=== PATIENT | male | born 1980 ===

== ENCOUNTER 2017-07-28 18:32 | Inpatient (IN) | payer MEDICAID ==
[2016-08-05 09:47] VITALS: Ht 195.6 cm; Wt 107.0 kg
[~2017-07-28] VITALS: Ht 195.6 cm; Wt 107.0 kg
[~2017-07-28 18:32] MED LIST changes: -FOLI-68 PO; -LANI SUBQ; -MIRT-20 PO; -MULT-1379 PO; -NICOTROL INHALER PO; -THIA100T2 PO
[2017-07-28] MEDS ORDERED: NICOTINE POLACRILEX 2 MG GUM PO PRN (18:55)
[2017-07-28] MEDS ORDERED: ACETAMINOPHEN 325 MG TAB PO PRN (19:15)
[2017-07-28] MEDS ORDERED: MAG HYD/AL HYD/SIMETH 30ML UDC PO PRN (19:15)
[2017-07-28 19:32] VITALS: BP 145/104
[2017-07-28] MEDS: INSULIN GLARGINE 100 U/ML 3 ML PEN SUBQ SCH ×2 (21:30→22:39)
[2017-07-28] MEDS: DIAZEPAM 10 MG TAB PO PRN (21:31)
[2017-07-29 03:20] VITALS: BP 127/93
[2017-07-29] MEDS: DIAZEPAM 10 MG TAB PO PRN ×4 (03:29→21:10)
[2017-07-29] MEDS ORDERED: metFORMIN HCL 500 MG TAB PO SCH (08:00)
[2017-07-29] MEDS: MULTIVITAMINS PO SCH (08:38)
[2017-07-29] MEDS: FOLIC ACID 1 MG TAB PO SCH (08:38)
[2017-07-29] MEDS: metFORMIN HCL 500 MG TAB PO SCH ×2 (08:38→21:09)
[2017-07-29] MEDS: CHOLECALCIFEROL 1000 UNIT TAB PO SCH (08:39)
[2017-07-29] MEDS: THIAMINE HCL 100 MG TAB PO SCH (08:39)
[2017-07-29 08:45] VITALS: BP 136/100
[2017-07-29 13:10] VITALS: BP 136/105
[2017-07-29 15:02] VITALS: BP 156/100
[2017-07-29 17:00] VITALS: BP 144/102
[2017-07-29 19:08] VITALS: BP 140/92
[2017-07-29] MEDS: INSULIN GLARGINE 100 U/ML 3 ML PEN SUBQ SCH ×2 (21:00→21:11)
[2017-07-29] MEDS ORDERED: CYPROHEPTADINE 4 MG PO SCH (21:00)
[2017-07-29] MEDS: MIRTAZAPINE 30 MG TAB 30 MG TAB PO SCH (21:10)
[2017-07-29] MEDS: ATORVASTATIN 10 MG TAB PO SCH (21:10)
[2017-07-30 04:00] VITALS: BP 132/94
[2017-07-30 08:00] VITALS: BP 135/109
[2017-07-30] MEDS: metFORMIN HCL 500 MG TAB PO SCH ×2 (08:19→17:00)
[2017-07-30] MEDS: MULTIVITAMINS PO SCH (08:20)
[2017-07-30] MEDS: FOLIC ACID 1 MG TAB PO SCH (08:20)
[2017-07-30] MEDS: CHOLECALCIFEROL 1000 UNIT TAB PO SCH (08:20)
[2017-07-30] MEDS: THIAMINE HCL 100 MG TAB PO SCH (08:20)
[2017-07-30 08:45] VITALS: BP 131/103
--- NOTE | 2017-07-30 10:03 | BHS Progress Note ---
[facility] - Subjective Progress Notes Subjective Patient denies any suicidal ideation today, and is pleasant and cooperative with this provider. Unfortunately, patient has decided now not to go to rehab at this point. Patient reports mood improving in absence of alcohol, will continue to treat patient's alcohol withdrawal to completion. No other concerns today. Suicidal Ideation: None Homicidal Ideation: None [facility] - Objective Physical Exam Vital Signs Vital Signs Date Time Temp Pulse Resp B/P (MAP) Pulse Ox O2 Delivery O2 Flow Rate FiO2 07/30/17 08:45 97.7 90 16 131/103 (112) 90 Room Air 07/29/17 15:02 2.0 Hematology Test 07/29/17 20:29 Whole Blood Glucose 132 mg/DL (75-110) Chemistry Test 07/29/17 20:29 Whole Blood Glucose 132 mg/DL (75-110) Muscle Strength and Tone: WNL Gait and Station: Steady [facility] Medications Reviewed: Side Effects, Benefits of Medication, Risks Allergies Reviewed: Yes Mental Status Exam General Appearance: Casual, Well Groomed, Good Eye Contact, Cooperative, Polite , Good Interaction, No Unkept, No Tearful, No Psychomotor Agitation, No Psychomotor Retardation, No Bizarre Mannerisms, No Tics Speech: Clear, Spontaneous, Normal Rate, Normal Rhythm, Normal Volume, Normal Tone Mood: Dysthmic/Depressed (frustrated, but improving) Affect: Full and Appropriate, Calm, Withdrawn, No Tearful, No Anxious, No Agitated Thought Process: Organized, Logical, Goal Directed, No Loose Associations, No Flight of Ideas Thought Content: No Suicidal Ideation, No Homicidal Ideation, No Delusions, No Auditory Halllucinations, No Visual Hallucinations, No Thought Broadcasting, No Ideas of Reference, No Obsessions, No Compulsions Sensorium: Clear Cognition: Alert & Oriented-Person, Alert & Oriented-Place, Alert & Oriented- Time, Jgczw-Ikafzndr-Qupmapuyz Memory: Immediate, Recent, Remote Intelligence: Average Insight Judgment: Fair (improving in absence of alcohol. ) [facility] Assessment and Plan [id number] Encounter Date: Jul 30, 2017 [id number] Encounter Time: 09:30 [facility] Plan: Necessary Precautions, Individual/Group Therapy, Admin/Titrate Meds, Educate Patient Tobacco Medications: Not Appropriate Condition Problems: (1) Alcohol-induced mood disorder Status: Acute Assessment & Plan: follows intoxication (2) Alcohol use disorder Status: Chronic Assessment & Plan: severe (3) Alcohol withdrawal Status: Acute Condition 1. continue treatment of withdrawal 2. encourage rehab, entrance. Problem Qualifiers (1) Alcohol withdrawal: Complication of substance-induced condition: uncomplicated Qualified Codes: F10.230 - Alcohol dependence with withdrawal, uncomplicated JOSE D GOLDEN MD Jul 30, 2017 10:03
[2017-07-30 12:45] VITALS: BP 142/104
[2017-07-30] MEDS ORDERED: NICOTINE CARTRIDGE 1 EA PO PRN (15:00)
[2017-07-30] MEDS: NICOTINE INH SYSTEM 10 MG/INH INH PRN ×2 (15:37→21:05)
--- NOTE | 2017-07-30 16:55 | HISTORY AND PHYSICAL ---
DATE OF ADMISSION: July 28, 2017 PRESENTING PROBLEM/CHIEF COMPLAINT This is a 36-year-old male who is somewhat well known to the Behavioral Health Unit here at [facility]. Patient presented to the emergency room on July 28, 2017 in a state of alcohol intoxication, likely compounded underlying depression with substance-induced mood disorder, and patient voicing suicidal thoughts. Patient was seen for this dictation on the morning of July 29, 2017 at approximately 1100 hours. HISTORY OF PRESENT ILLNESS This is again a 36-year-old male, last on the unit here from August 04 to August 06, 2016. Patient at that time suffering from a diagnosis of alcohol use disorder severe, alcohol withdrawal treated to completion. Patient appeared to have substance-induced mood disorder mainly, however, underlying persisting depressive disorder versus major depression needs to be further evaluated. Patient very cooperative with initial interview, stating that his mood is improving in the absence of alcohol. Patient reports up to a one and a half month period of sobriety where he was totally abstinent from alcohol since leaving the unit in July of 2016. Patient reports toward the end of that period that the patient's mood was good in the absence of alcohol. Patient has long fought alcoholism. He also reports specific stressors in that he had been looking for a job and he is no longer in [employer]. Patient reports overall getting along okay with his , however, he does report that drinking certainly causes problems in their relationship. Patient unable to give any specific depressive symptoms, other than the aforementioned suicidal thoughts which seem to appear in the presence of alcohol intoxication. MENTAL HEALTH HISTORY Patient reports inpatient history of being in a [facility]. Patient has been here twice before. Patient has been in a [facility] in [place] in 2011 as well. Patient recently started seeing an outpatient therapist at [facility], and continues on medications prescribed through the [facility]. FAMILY PSYCHIATRIC HISTORY Patient's mother and father were known to suffer for alcoholism. Rest of psychiatric history unknown at this time. PAST MEDICAL HISTORY Significant for diabetes and some chronic low back pain. SOCIAL HISTORY Patient was born in [place], [place]. Patient was raised there. Parents were together at the time of his . They remained together until he was about 14-15 years old. Patient has two brothers, two sisters. He states he gets along with his family well overall. He is a high school graduate. Patient was unable to finish [employer] and is not enrolled, as [facility] is closing as well. 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 Patient is not working currently. Patient is last known to get 60% disability for PTSD through the [facility] system. Patient lives with his and two children, ages 6 and 3, here in [place], and reports that alcohol influences his relationship in a negative manner. LEGAL HISTORY Patient is believed to have multiple DUIs. SUBSTANCE USE HISTORY Main substance of abuse remains alcohol. Minimal cigarette smoking in the past. Patient had tried cocaine in the past per previous report which was pleasurable, and has used marijuana from time to time. PHYSICAL EXAMINATION GENERAL: Please see emergency room note. Notable for a 36-year-old male who appears stated age in no acute medical distress. VITAL SIGNS: At the time of admission temperature 98.7, pulse 111, respiratory rate 18, blood pressure 139/106 and pulse oximetry initially low at 86 on room air. LABORATORY DATA CBC notable for RBCs slightly elevated at 6.14, notably MCV and MCH within normal range with a normal platelet count of 258,000. Chemistry hepatic panel unremarkable including total bilirubin, AST and ALT. Random glucose slightly elevated at 137. TSH low at 0.31. Urinalysis did show small urine blood, otherwise unremarkable. Toxicology screen was negative for substances of abuse with the exception of a blood alcohol level of 379 at the time of admission. MENTAL STATUS EXAMINATION GENERAL APPEARANCE, BEHAVIOR AND ATTITUDE: At the time of initial interview, this is a very cooperative, polite 36-year-old male admitting that alcohol is his biggest problem in his life. Patient contemplating whether to go back to rehab through the [facility] services or not. Patient very polite, making good eye contact, interacting well. No bizarre mannerisms or tics. No periods of tearfulness. SPEECH: Within normal limits, regular rate, rhythm volume and tone. MOOD: Described as improving in the absence of alcohol. AFFECT: Minimally constricted and mood congruent. THOUGHT PROCESSES: Appear goal directed, logical. No loose associations or flight of ideas. THOUGHT CONTENT: Free of auditory or visual hallucinations, ideas of reference , thought broadcastings, delusions, obsessions, compulsions. Patient denying suicidal or homicidal ideation today. SENSORIUM: Clear. COGNITION: Alert and oriented to person, place, time and situation. MEMORY: Immediate, recent and remote estimated intact. INTELLIGENCE: Average based on interview. INSIGHT AND JUDGMENT: Considered grossly intact in the absence of alcohol use. Patient presenting voluntarily for treatment. ASSESSMENT This is a 36-year-old male who suffers from chronic, severe alcoholism. Patient does have some periods of sobriety in between binging episodes and dysphoric mood seems to take place in the presence of alcohol. At this time we will work with patient to concur any symptoms of physiologic alcohol withdrawal with diazepam per [facility] protocol. We will meet with patient's as well and would encourage residential rehab at this time. DIAGNOSES PER DSM-V Alcohol intoxication. Alcohol withdrawal. Alcohol use disorder severe. Alcohol-induced mood disorder. Underlying persistent depression versus major depression. PLAN 1. Admit to the unit. 2. Necessary precautions to be implemented. 3. Patient will participate in individual and group therapy. 4. Medications to be adjusted, titrated accordingly. 5. Collateral information to be obtained. 6. Estimated length of stay unknown at this time. MTDD
[2017-07-30 20:03] VITALS: BP 145/95
[2017-07-30] MEDS: MIRTAZAPINE 30 MG TAB 30 MG TAB PO SCH (21:04)
[2017-07-30] MEDS: INSULIN GLARGINE 100 U/ML 3 ML PEN SUBQ SCH (21:04)
[2017-07-30] MEDS: ATORVASTATIN 10 MG TAB PO SCH (21:04)
[2017-07-31 03:15] VITALS: BP 114/76
[2017-07-31] MEDS: FOLIC ACID 1 MG TAB PO SCH (08:07)
[2017-07-31] MEDS: metFORMIN HCL 500 MG TAB PO SCH (08:07)
[2017-07-31] MEDS: THIAMINE HCL 100 MG TAB PO SCH (08:07)
[2017-07-31] MEDS: MULTIVITAMINS PO SCH (08:07)
[2017-07-31] MEDS: CHOLECALCIFEROL 1000 UNIT TAB PO SCH (08:08)
[2017-07-31 08:25] VITALS: BP_SYST 122; BP_SYST 182; BP_DIAS 86
[2017-07-31] MEDS: NICOTINE INH SYSTEM 10 MG/INH INH PRN (09:57)
[2017-07-31] MEDS ORDERED: FOLI-68 PO (10:43)
[2017-07-31] MEDS ORDERED: LANI SUBQ (10:44)
[2017-07-31] MEDS ORDERED: ATOR10TA24 PO (10:45)
[2017-07-31] MEDS ORDERED: MIRT-20 PO (10:48)
[2017-07-31] MEDS ORDERED: MULT-1379 PO (12:35)
[2017-07-31] MEDS ORDERED: THIA100T2 PO (12:36)
[2017-07-31] MEDS ORDERED: NIC10R INH (12:37)
[2017-07-31] MEDS ORDERED: NICOTROL INHALER PO (12:38)
[2017-07-31 12:52] VITALS: BP 140/92
--- NOTE | 2017-08-01 16:58 | DISCHARGE SUMMARY ---
FINAL DIAGNOSES PER DSM-V Alcohol intoxication, resolved. Alcohol withdrawal, treated to completion. Alcohol use disorder, severe. Alcohol-induced mood disorder. Underlying persisting depression versus potential major depression. REASON FOR ADMISSION Please see H and P for full details. This is a very polite, cooperative 36-year -old male who suffers from penitentiary alcohol use disorder. Patient admitted with suicidal thoughts and in a state of alcohol intoxication. Patient admitted on a voluntary basis. Alcohol withdrawal completed to completion via CIWA protocol and diazepam. Patient continued to improve, mood continued to improve in the absence of alcohol, and patient having no further suicidal ideation. Patient's was contacted prior to discharge, had no reservations about his discharge. Patient discharged to home. PHYSICAL EXAMINATION GENERAL: Please see emergency room note. Notable for a 36-year-old male in no acute medical distress. VITAL SIGNS: At the time of admission showed a temperature of 98.7, pulse 111, respiratory rate 18, blood pressure 139/106, pulse oximetry 86 on room air. At the time of discharge from [facility] vital signs showed temperature 98.9 , pulse 93, respiratory rate 16, blood pressure 140/92 and pulse oximetry 95 on room air. LABORATORY DATA This patient who suffers from diabetes showed largely controlled blood sugars throughout his stay. Please see electronic record. CBC at the time of admission notable for RBCs slightly elevated at 6.14, platelet count notably within normal limits, and MCH and MCH were within normal limits. Chemistry panel noted for a random glucose of 137 at the time of admission. TSH low at 0.31. Toxicology screen negative with a serum alcohol level critically high at 379 upon admission. Patient had small urine blood present and some urine protein, otherwise unremarkable urinalysis. MENTAL STATUS EXAMINATION AT THE TIME OF DISCHARGE GENERAL APPEARANCE, BEHAVIOR AND ATTITUDE: This is a somewhat quiet 36-year- old male making [id number] eye contact. This seems to be baseline with cultural roots. Patient interacting well with this provider, other treatment team staff. Patient interacting well with his , present via telephone at the time of final meeting prior to discharge. No bizarre mannerisms or tics. No periods of tearfulness. SPEECH: Again, quiet at times. MOOD: Described as okay. AFFECT: Slightly constricted to full briefly. THOUGHT PROCESSES: Logical, goal directed. No loose associations or flight of ideas. THOUGHT CONTENT: Free of auditory or visual hallucinations, ideas of reference , thought broadcastings, delusions, obsessions, compulsions. Patient denying any suicidal or homicidal ideation. SENSORIUM: Clear. COGNITION: Alert and oriented to person, place, time and situation. MEMORY: Immediate, recent and remote estimated intact. INTELLIGENCE: Average based on interview. INSIGHT AND JUDGMENT: Considered grossly intact in the absence of alcohol use. RESULTS OF TESTING IMAGING: None. LABORATORY DATA: See above. CONSULTATIONS: None. TREATMENT Patient received medications, participated in individual and group therapy. HOSPITAL COURSE Patient was very calm and cooperative throughout the stay. No parasuicidal behaviors were known. Patient took a very active role in his treatment. Initially patient was considering going to residential rehab, which was strongly encouraged in this patient, however, patient refusing in the end, wanting to discharge to home. CONDITION OF PATIENT ON DISCHARGE Stable. Considered minimal risk to himself or others in the absence of alcohol , and appropriate for ongoing outpatient management. DISPOSITION Patient discharged to home in the care of his . Patient would follow up with [place] for [facility] and [place] and any other outpatient services. Patient currently will see therapist as well through the [facility] outreach program. Patient would abstain from alcohol, was encouraged to enter residential rehab, and was given the crisis line should symptoms return. Discharge medications included folic acid 1 mg over the counter daily, Glucophage 1000 mg at breakfast and supper, Lantus as needed at home, Lipitor 10 mg at bedtime, cyproheptadine 4 mg at bedtime, Remeron 60 mg at bedtime, vitamin B1 100 mg daily, multivitamin with minerals daily, vitamin D3 1000 international units daily. Patient could also continue bupropion which patient had at home at 100 mg at breakfast and 100 mg at lunch. Patient was given the crisis line should symptoms return. Risks, benefits and alternatives of the above discharge plan were discussed. Informed consent was given to proceed with above discharge plan by this competent patient and patient 's . FRANCIE
== END 2017-07-31 15:56 | disposition home or self-care (01) | DRG 897 ==
LOC: BHS 18:32
PROVIDERS: ADMIT Registered Nurse Psychiatric/Mental Health, Adult; ATTEND Registered Nurse Psychiatric/Mental Health, Adult
DX: F10.230 Alcohol dependence with withdrawal, uncomplicated (principal); R45.851 Suicidal ideations; F10.24 Alcohol dependence with alcohol-induced mood disorder; F34.1 Dysthymic disorder; E11.9 Type 2 diabetes mellitus without complications; F43.12 Post-traumatic stress disorder, chronic; G89.29 Other chronic pain; Y90.8 Blood alcohol level of 240 mg/100 ml or more; Z56.0 Unemployment, unspecified; Z81.1 Family history of alcohol abuse and dependence; Z87.891 Personal history of nicotine dependence; Z91.5 Personal history of self-harm; Z79.4 Long term (current) use of insulin
CPT/HCPCS: 36416; 82948; 90853; J1815

== ENCOUNTER → 2017-07-28 | Emergency (ER) | payer MEDICAID ==
[2016-08-05 09:47] VITALS: Ht 182.9 cm; Wt 113.4 kg
[~2017-07-28] VITALS: Ht 182.9 cm; Wt 113.4 kg
[~2017-07-28] MED LIST: ATOR10TA24 PO; BUPR-149 PO; CHOL200022 PO; CYCL10TA29 PO; CYPR4TAB32 PO; FOLI-68 PO; GABA-549 PO; HYDR-317 PO; HYDR-4309 PO; IBUP400T13 PO; LANI SUBQ; METF-420 PO; MIR45PT PO; MIRT-20 PO; MIRT-25 PO; MULT-1379 PO; NIC10R INH; NICOTROL INHALER PO; THIA100T2 PO
--- NOTE | 2017-07-28 16:04 | ER Report ---
History and Physical Time Seen By MD: 16:04 HPI/TOMEKA CHIEF COMPLAINT: Suicidal ideation HISTORY OF PRESENT ILLNESS: 36-year-old male patient presents to emergency room with complaint of suicidal ideation. Patient states that he is currently been out of his antidepressant medications for 4 days. He states that he has had problems with depression past. He states that he sees a counselor in the [facility]. He states that he does not have any plans at this time. He states that he does have a suicide attempt in the past. He states that that time he took a gun and blow to his head and pull the trigger. He did not respond when asked what happened at that time. He states he does have some low abdominal discomfort. He denies any fevers, chills, nausea, vomiting or diarrhea. Patient states that he did have a lot to drink. Patient states he does drink daily, however he typically drinks beer. He states that today he is drink more of the hard liquor. REVIEW OF SYSTEMS: Respiratory: No cough, no dyspnea. Cardiovascular: No chest pain, no palpitations. Gastrointestinal: As noted above Musculoskeletal: No back pain. Allergies: Coded Allergies: naproxen (Verified Allergy, Mild, 08/04/16) lisinopril (Verified Allergy, Unknown, 08/04/16) UNABLE TO OBTAIN (Unverified , 03/16/17) "I can't remeber" Home Meds Reported Medications Metformin Hcl (METFORMIN HCL) 1,000 Mg Tablet, 1 TAB PO QDAY, TAB 03/16/17 Cholecalciferol (Vitamin D3) (Vitamin D-3) 2,000 Unit Tablet, 2000 INTLU PO DAILY 05/14/16 Mirtazapine (REMERON) 45 Mg Tab, 45 MG PO QHS, TAB 05/14/16 Gabapentin (GABAPENTIN) 300 Mg Capsule, 600 MG PO BID, CAPSULE 05/09/16 Bupropion Hcl (BUPROPION HCL) 100 Mg Tablet, 100 MG PO BIDBL, TAB TAKE 100 MG AT 0900 AND NOON. 05/09/16 Cyproheptadine Hcl (CYPROHEPTADINE HCL) 4 Mg Tablet, 4 MG PO HS Y for SLEEP 05/09/16 Ibuprofen (IBUPROFEN) 400 Mg Tablet, 2 TAB PO TID, TAB 03/13/16 Metformin Hcl (METFORMIN HCL) 1,000 Mg Tablet, 1 TAB PO BID, TAB TAKE 1000 MG AT BREAKFAST AND SUPPER 03/13/16 Discontinued Reported Medications Nicotine (NICOTROL) 10 Mg/Inh Ctr, 1 EA INH PRN NICOTINE REPLACEMENT NEEDED 05/14/16 Atorvastatin Calcium (LIPITOR) 10 Mg Tablet, 1 TAB PO QHS, TAB 05/14/16 Past Medical/Surgical History Patient has a past medical history of hypertension, diabetes, substance abuse, alcohol abuse, PTSD, depression, suicidal attempt. Patient has a surgical history of appendectomy, bowel surgery. Reviewed Nurses Notes: Yes Hx Smoking: Yes Smoking Status: Current: Every Day Smoker Exposure to Second Hand Smoke?: Yes Hx Substance Use Disorder: Yes Hx Alcohol Use: Yes Constitutional Vital Sign - Last 24 Hours 07/28/17 07/28/17 07/28/17 07/28/17 16:04 16:04 16:13 16:28 Temp 98.7 Pulse 111 113 100 Resp 18 B/P (MAP) 139/106 139/106 (117) Pulse Ox 86 91 98 07/28/17 07/28/17 07/28/17 07/28/17 16:43 16:58 17:13 17:22 Pulse 105 ? B/P (MAP) 141/79 (99) Pulse Ox 94 07/28/17 07/28/17 07/28/17 07/28/17 17:27 17:42 17:57 18:12 Pulse 113 ? Resp 18 Pulse Ox 90 07/28/17 07/28/17 07/28/17 18:22 18:27 18:45 Pulse 111 B/P (MAP) 118/93 (101) Pulse Ox 96 O2 Flow Rate 2.0 Physical Exam General Appearance: The patient is alert, has no immediate need for airway protection and no current signs of toxicity. ENT: Tympanic membranes are pearly-olivas, auditory canals are patent, mucous membranes are moist. Respiratory: Chest is non tender, lungs are clear to auscultation. Cardiac: regular rate and rhythm Gastrointestinal: Abdomen is soft and non tender, no masses, bowel sounds normal. Musculoskeletal: Neck: Neck is supple and non tender. Extremities have full range of motion and are non tender. Skin: No rashes or lesions. Psych: Patient does have slurred speech, he is able to maintain eye contact, speech is slow. DIFFERENTIAL DIAGNOSIS: After history and physical exam differential diagnosis was considered for depression, suicidal ideation. Medical Decision Making Data Points Result Diagram: 07/28/17 1626 07/28/17 1626 Laboratory Hematology Test 07/28/17 16:26 07/28/17 16:58 Red Blood Count 6.14 M/uL (4.00-5.60) Mean Corpuscular Volume 84.7 fL (80.0-96.0) Mean Corpuscular Hemoglobin 28.9 pg (26.0-33.0) Mean Corpuscular Hemoglobin Concent 34.1 g/dL (32.0-36.0) Red Cell Distribution Width 14.7 % (11.5-14.5) Mean Platelet Volume 7.9 fL (7.2-11.1) Neutrophils (%) (Auto) 47.0 % (39.4-72.5) Lymphocytes (%) (Auto) 45.2 % (17.6-49.6) Monocytes (%) (Auto) 6.4 % (4.1-12.4) Eosinophils (%) (Auto) 0.2 % (0.4-6.7) Basophils (%) (Auto) 1.2 % (0.3-1.4) Nucleated RBC Relative Count (auto) 0.1 /100WBC Neutrophils # (Auto) 3.9 K/uL (2.0-7.4) Lymphocytes # (Auto) 3.8 K/uL (1.3-3.6) Monocytes # (Auto) 0.5 K/uL (0.3-1.0) Eosinophils # (Auto) 0.0 K/uL (0.0-0.5) Basophils # (Auto) 0.1 K/uL (0.0-0.1) Nucleated RBC Absolute Count (auto) 0.01 K/uL Sodium Level 148 mmol/L (137-145) Potassium Level 3.6 mmol/L (3.5-5.0) Chloride Level 105 mmol/L (98-107) Carbon Dioxide Level 24 mmol/L (22-30) Blood Urea Nitrogen 7 mg/dl (9-21) Creatinine 0.80 mg/dl (0.66-1.25) Glomerular Filtration Rate Calc > 60.0 Random Glucose 137 mg/dl (75-110) Calcium Level 8.8 mg/dl (8.4-10.2) Magnesium Level 1.9 mg/dl (1.7-2.2) Total Bilirubin 0.4 mg/dl (0.2-1.3) Aspartate Amino Transf (AST/SGOT) 27 U/L (0-35) Alanine Aminotransferase (ALT/SGPT) 55 U/L (0-56) Alkaline Phosphatase 77 U/L (0-126) Total Protein 8.3 gm/dl (6.3-8.2) Albumin 4.6 g/dl (3.5-5.0) Salicylates Level < 10 mg/L Salicylate Last Dose Date unk Acetaminophen Level < 10 ug/ml Serum Alcohol 379 mg/dl Urine Color Yellow Urine Clarity Clear Urine pH 6.0 pH (4.8-9.5) Urine Specific Ona 1.009 Urine Protein 30 mg/dL (NEGATIVE) Urine Glucose (UA) Negative mg/dL (NEGATIVE) Urine Ketones Negative mg/dL (NEGATIVE) Urine Blood Small (NEGATIVE) Urine Nitrite Negative (NEGATIVE) Urine Bilirubin Negative (NEGATIVE) Urine Urobilinogen Negative mg/dL (0.2-1.9) Urine Leukocyte Esterase Negative (NEGATIVE) Urine RBC <1 /HPF (0-2/HPF) Urine WBC 2 /HPF (0-5/HPF) Urine Squamous Epithelial Cells Few /LPF (</=FEW) Urine Bacteria Negative /HPF (NONE-FEW) Urine Mucus None /HPF (NONE-FEW) Urine Opiates Screen Negative Urine Barbiturates Screen Negative Ur Tricyclic Antidepressants Screen Negative Urine Phencyclidine Screen Negative Urine Amphetamines Screen Negative Urine Benzodiazepines Screen Negative Urine Cocaine Screen Negative Urine Cannabinoids Screen Negative Chemistry Test 07/28/17 16:26 07/28/17 16:58 White Blood Count 8.3 k/uL (4.5-11.0) Red Blood Count 6.14 M/uL (4.00-5.60) Hemoglobin 17.8 g/dL (14.0-18.0) Hematocrit 52.1 % (42.0-52.0) Mean Corpuscular Volume 84.7 fL (80.0-96.0) Mean Corpuscular Hemoglobin 28.9 pg (26.0-33.0) Mean Corpuscular Hemoglobin Concent 34.1 g/dL (32.0-36.0) Red Cell Distribution Width 14.7 % (11.5-14.5) Platelet Count 258 K/uL (150-450) Mean Platelet Volume 7.9 fL (7.2-11.1) Neutrophils (%) (Auto) 47.0 % (39.4-72.5) Lymphocytes (%) (Auto) 45.2 % (17.6-49.6) Monocytes (%) (Auto) 6.4 % (4.1-12.4) Eosinophils (%) (Auto) 0.2 % (0.4-6.7) Basophils (%) (Auto) 1.2 % (0.3-1.4) Nucleated RBC Relative Count (auto) 0.1 /100WBC Neutrophils # (Auto) 3.9 K/uL (2.0-7.4) Lymphocytes # (Auto) 3.8 K/uL (1.3-3.6) Monocytes # (Auto) 0.5 K/uL (0.3-1.0) Eosinophils # (Auto) 0.0 K/uL (0.0-0.5) Basophils # (Auto) 0.1 K/uL (0.0-0.1) Nucleated RBC Absolute Count (auto) 0.01 K/uL Glomerular Filtration Rate Calc > 60.0 Calcium Level 8.8 mg/dl (8.4-10.2) Magnesium Level 1.9 mg/dl (1.7-2.2) Total Bilirubin 0.4 mg/dl (0.2-1.3) Aspartate Amino Transf (AST/SGOT) 27 U/L (0-35) Alanine Aminotransferase (ALT/SGPT) 55 U/L (0-56) Alkaline Phosphatase 77 U/L (0-126) Total Protein 8.3 gm/dl (6.3-8.2) Albumin 4.6 g/dl (3.5-5.0) Salicylates Level < 10 mg/L Salicylate Last Dose Date unk Acetaminophen Level < 10 ug/ml Serum Alcohol 379 mg/dl Urine Color Yellow Urine Clarity Clear Urine pH 6.0 pH (4.8-9.5) Urine Specific Ona 1.009 Urine Protein 30 mg/dL (NEGATIVE) Urine Glucose (UA) Negative mg/dL (NEGATIVE) Urine Ketones Negative mg/dL (NEGATIVE) Urine Blood Small (NEGATIVE) Urine Nitrite Negative (NEGATIVE) Urine Bilirubin Negative (NEGATIVE) Urine Urobilinogen Negative mg/dL (0.2-1.9) Urine Leukocyte Esterase Negative (NEGATIVE) Urine RBC <1 /HPF (0-2/HPF) Urine WBC 2 /HPF (0-5/HPF) Urine Squamous Epithelial Cells Few /LPF (</=FEW) Urine Bacteria Negative /HPF (NONE-FEW) Urine Mucus None /HPF (NONE-FEW) Urine Opiates Screen Negative Urine Barbiturates Screen Negative Ur Tricyclic Antidepressants Screen Negative Urine Phencyclidine Screen Negative Urine Amphetamines Screen Negative Urine Benzodiazepines Screen Negative Urine Cocaine Screen Negative Urine Cannabinoids Screen Negative Toxicology Test 07/28/17 16:26 07/28/17 16:58 Salicylates Level < 10 mg/L Salicylate Last Dose Date unk Acetaminophen Level < 10 ug/ml Serum Alcohol 379 mg/dl Urine Opiates Screen Negative Urine Barbiturates Screen Negative Ur Tricyclic Antidepressants Screen Negative Urine Phencyclidine Screen Negative Urine Amphetamines Screen Negative Urine Benzodiazepines Screen Negative Urine Cocaine Screen Negative Urine Cannabinoids Screen Negative Urinalysis Test 07/28/17 16:58 Urine Color Yellow Urine Clarity Clear Urine pH 6.0 pH (4.8-9.5) Urine Specific Ona 1.009 Urine Protein 30 mg/dL (NEGATIVE) Urine Glucose (UA) Negative mg/dL (NEGATIVE) Urine Ketones Negative mg/dL (NEGATIVE) Urine Blood Small (NEGATIVE) Urine Nitrite Negative (NEGATIVE) Urine Bilirubin Negative (NEGATIVE) Urine Urobilinogen Negative mg/dL (0.2-1.9) Urine Leukocyte Esterase Negative (NEGATIVE) Urine RBC <1 /HPF (0-2/HPF) Urine WBC 2 /HPF (0-5/HPF) Urine Squamous Epithelial Cells Few /LPF (</=FEW) Urine Bacteria Negative /HPF (NONE-FEW) Urine Mucus None /HPF (NONE-FEW) ED Course/Re-evaluation ED Course Patient was admitted to exam room, history and physical were obtained. Differential diagnoses were considered. On examination patient has slurred speech, he is obviously intoxicated. Does have poor eye contact. Lab work for a behavioral health admission were done. Labs came back, he did have a blood alcohol of 379 otherwise unremarkable, I discussed the case with Feil Aceves , psych mental health nurse practitioner. She agreed to accept the patient for admission. I discussed this with patient. We'll go ahead and admit him for suicidal ideation, depression and alcohol intoxication. Verbalized understanding and agreement with plan. Decision to Disposition Date: Jul 28, 2017 Decision to Disposition Time: 18:37 Depart Departure Latest Vital Signs Vital Signs Date Time Temp Pulse Resp B/P (MAP) Pulse Ox O2 Delivery O2 Flow Rate FiO2 07/28/17 18:45 2.0 07/28/17 18:27 111 96 07/28/17 18:22 118/93 (101) 07/28/17 17:27 18 07/28/17 16:04 98.7 Impression: Primary Impression: Major depression, recurrent Additional Impressions: Alcohol use disorder Suicidal ideation Condition: Condition Unchanged Disposition: XFER TO [facility] Problem Qualifiers Primary Impression: Major depression, recurrent Active/Remission status: currently active Major depression episode severity: moderate Qualified Codes: F33.1 - Major depressive disorder, recurrent, moderate ZOILA BERRY Jul 28, 2017 16:04
[2017-07-28 16:36] LABS: PLATELET COUNT, AUTOMATED 258 K/uL (150-450)
[2017-07-28 18:22] VITALS: BP 118/93
== END ==
LOC: ER 16:05
DX: F33.1 Major depressive disorder, recurrent, moderate (principal); R45.851 Suicidal ideations; F10.10 Alcohol abuse, uncomplicated; Y90.8 Blood alcohol level of 240 mg/100 ml or more
CPT/HCPCS: 80305; 81001; 83735; 84443; 85025; 87088; 99284; G0480; 80320; 80329; 82040; 82247; 82310; 82374; 82435; 82565; 82947; 84075; 84132; 84155; 84295; 84450; 84460; 84520

== ENCOUNTER → 2017-09-11 | Outpatient (CLI) | payer MEDICAID ==
[2016-08-05 09:47] VITALS: BMI 32.1
[~2017-09-11] MED LIST changes: +CHOL10005 PO; +FOLI-68 PO; +LANI SUBQ; +LOSA25TA50 PO; +MIRT-20 PO; +MULT-1379 PO; +NICOTROL INHALER PO; +THIA100T2 PO
[2017-09-11 12:51] LABS: PLATELET COUNT, AUTOMATED 256 K/uL (150-450)
[2017-09-11 12:54] LABS: LDL CHOLESTEROL 67 mg/dl
== END ==
LOC: LAB 12:21
PROVIDERS: ATTEND Internal Medicine
DX: E11.9 Type 2 diabetes mellitus without complications (principal); E78.5 Hyperlipidemia, unspecified; F33.9 Major depressive disorder, recurrent, unspecified; F43.10 Post-traumatic stress disorder, unspecified
CPT/HCPCS: 36415; 81001; 82040; 82043; 82247; 82310; 82374; 82435; 82465; 82565; 82947; 83036; 83718; 84075; 84132; 84155; 84295; 84439; 84443; 84450; 84460; 84478; 84520; 85025